=== PATIENT | female | born 1980 | race American Indian/Alaskan Native ===

== ENCOUNTER 2018-04-15 20:10 | Emergency (ER) | payer MEDICAID ==
[2018-04-15] MEDS ORDERED: Ciprofloxacin 500 MG Tab PO ONE (21:00)
--- NOTE | 2018-04-15 21:13 | EDM.PDOC ---
ED HPI GENERAL MEDICAL PROBLEM - General Chief Complaint: Genitourinary Problem Stated Complaint: BLADDER INFECTION Time Seen by Provider: 04/15/18 20:45 Source of Information: Reports: Patient History Limitations: Reports: No Limitations - History of Present Illness INITIAL COMMENTS - FREE TEXT/NARRATIVE: 37-year-old female with dysuria for the past 3 days, she wanted to wait till tomorrow but seems to be getting worse. No fever or back pain. Onset: Gradual (Over the past 3 days) Severity: Mild Associated Symptoms: Denies: Fever/Chills, Nausea/Vomiting - Related Data Allergies Allergy/AdvReac Type Severity Reaction Status Date / Time divalproex sodium Allergy Chest Pain Verified 04/15/18 20:36 [From Depakote] lamotrigine [From Lamictal] Allergy Hives Verified 04/15/18 20:36 Home Meds: Home Meds NK [No Known Home Meds] 04/15/18 [History] Past Medical History Genitourinary History: Reports: UTI, Recurrent - Past Surgical History Female Surgical History: Reports: Section Social & Family History - Tobacco Use Smoking Status *Q: Current Every Day Smoker Years of Tobacco use: 15 Packs/Tins Daily: 1 ED ROS GENERAL - Review of Systems Review Of Systems: See Below Constitutional: Denies: Fever, Chills, Malaise HEENT: Reports: No Symptoms Respiratory: Reports: No Symptoms GI/Abdominal: Denies: Abdominal Pain : Reports: Dysuria, Frequency. Denies: Flank Pain Skin: Reports: No Symptoms Neurological: Reports: No Symptoms ED EXAM, RENAL/ - Physical Exam Exam: See Below Exam Limited By: No Limitations General Appearance: Alert, No Apparent Distress Respiratory/Chest: No Respiratory Distress Cardiovascular: Regular Rate, Rhythm GI/Abdominal: Normal Bowel Sounds Back Exam: No: CVA Tenderness (R), CVA Tenderness (L) Course - Vital Signs Last Recorded V/S: Last Vital Signs Temp 98.3 F 04/15/18 20:40 Pulse 76 04/15/18 20:40 Resp 16 04/15/18 20:40 BP 127/80 04/15/18 20:40 Pulse Ox 97 04/15/18 20:40 - Orders/Labs/Meds Orders: Active Orders 24 hr Category Date Time Status CULTURE URINE [RM] Stat Lab 04/15/18 21:02 Received UA W/MICROSCOPIC [URIN] Stat Lab 04/15/18 20:35 Ordered Labs: Laboratory Tests 04/15/18 Range/Units 20:35 Urine Color [place] Urine Appearance Cloudy Urine pH 5.0 (4.5-8.0) Ur Specific [place] 1.020 (1.008-1.030) Urine Protein 500 H (NEGATIVE) mg/dL Urine Glucose (UA) Normal (NEGATIVE) mg/dL Urine Ketones Negative (NEGATIVE) mg/dL Urine Occult Blood Large (NEGATIVE) Urine Nitrite Positive H (NEGATIVE) Urine Bilirubin Large (NEGATIVE) Urine Urobilinogen >=12 H (NORMAL) mg/dL Ur Leukocyte Esterase Large (NEGATIVE) Urine RBC Packed H (0-5) Urine WBC Packed H (0-5) Ur Epithelial Cells Moderate Amorphous Sediment Few Urine Bacteria Moderate Urine Mucus Few Meds: Medications Discontinued Medications Generic Name Dose Route Start Last Admin Trade Name Freq PRN Reason Stop Dose Admin Ciprofloxacin 500 mg 04/15/18 21:00 04/15/18 21:12 Ciprofloxacin Hcl PO 04/15/18 21:01 500 mg ONETIME ONE Administration - Re-Assessments/Exams Free Text/Narrative Re-Assessment/Exam: 04/15/18 21:11 UA is markedly abnormal with packed WBCs RBCs and many bacteria. A urine culture was initiated, the patient was given 500 mg of oral ciprofloxacin and a prescription for 250 mg twice daily for 5 more days. She will return if worsening despite treatment. Departure - Departure Time of Disposition: 21:23 Disposition: Home, Self-Care 01 Condition: Good Clinical Impression: UTI, Urinary tract infectious disease - Discharge Information Instructions: Urinary Tract Infection, Adult Referrals: PCP,None [Primary Care Provider] - Forms: ED Department Discharge Care Plan Goals: Take antibiotic twice a day as prescribed starting tomorrow morning after the prescription is filled. He should improve rapidly, if not improved in 2-3 days return for recheck, or return even sooner if worsening such as fever or vomiting. - My Orders Last 24 Hours: My Active Orders 04/15/18 20:35 UA W/MICROSCOPIC [URIN] Stat 04/15/18 21:02 CULTURE URINE [RM] Stat - Assessment/Plan Last 24 Hours: My Active Orders 04/15/18 20:35 UA W/MICROSCOPIC [URIN] Stat 04/15/18 21:02 CULTURE URINE [RM] Stat
== END 2018-04-15 21:24 | disposition home or self-care (01) ==
LOC: JP.ED 20:10
DX: N39.0 Urinary tract infection, site not specified (principal); F17.210 Nicotine dependence, cigarettes, uncomplicated; Z88.8 Allergy status to other drugs, medicaments and biological substances
CPT/HCPCS: 81001; 87086; 99284; A9270; 87088; 87186